=== PATIENT | male | born 1985 | race Caucasian/White ===

== ENCOUNTER 2016-12-06 00:36 | Emergency (ER) | payer BC ==
[~2016-12-06] VITALS: Ht 177.8 cm; Wt 81.6 kg
--- NOTE | 2016-12-06 00:55 | PHYS DOC ---
Adult General HPI HPI 31-year-old male who presented acutely altered by KEVIN after being taken out of his vehicle and not cooperating with police. Patient is nonverbal upon arrival. He responds to painful stimulus. No other history can be obtained at this time due to the patient's mental status. Review of Systems Review of Systems A 10 point review of systems is unable to be obtained secondary to the patients underlying mental status. Allergies Allergies Allergies Coded Allergies Type Severity Reaction Last Updated Verified Unable to Assess 12/06/16 No Physical Exam Physical Exam Constitutional: Well developed, well nourished, no acute distress, non-toxic appearance. [] HENT: Normocephalic, atraumatic, bilateral external ears normal, oropharynx moist, no oral exudates, nose normal. [] Eyes: PERRLA, EOMI, conjunctiva normal, no discharge. [] Neck: Normal range of motion, no tenderness, supple, no stridor. [] Cardiovascular:Heart rate regular rhythm, no murmur [] Lungs & Thorax: Bilateral breath sounds clear to auscultation [] Abdomen: Bowel sounds normal, soft, no tenderness, no masses, no pulsatile masses. [] Skin: Warm, dry, no erythema, no rash. [] Back: No tenderness, no CVA tenderness. [] Extremities: No tenderness, no cyanosis, no clubbing, ROM intact, no edema. [] Neurologic: No obvious focal deficits. Current Patient Data Vital Signs Vital Signs Date Time Temp Pulse Resp B/P (MAP) Pulse Ox O2 Delivery O2 Flow Rate FiO2 12/06/16 02:45 80 112/56 (74) 97 Room Air 12/06/16 00:57 98.1 18 98.1 Lab Values Laboratory Tests Test 12/06/16 00:42 White Blood Count 5.6 x10^3/uL (4.0-11.0) Red Blood Count 4.16 x10^6/uL (4.30-5.70) L Hemoglobin 13.3 g/dL (13.0-17.5) Hematocrit 39.3 % (39.0-53.0) Mean Corpuscular Volume 95 fL (79-100) Mean Corpuscular Hemoglobin 32 pg (25-35) Mean Corpuscular Hemoglobin Concent 34 g/dL (31-37) Red Cell Distribution Width 13.7 % (11.5-14.5) Platelet Count 146 x10^3/uL (140-400) Neutrophils (%) (Auto) 58 % (31-73) Lymphocytes (%) (Auto) 31 % (24-48) Monocytes (%) (Auto) 9 % (0-9) Eosinophils (%) (Auto) 3 % (0-3) Basophils (%) (Auto) 0 % (0-3) Neutrophils # (Auto) 3.2 x10^3uL (1.8-7.7) Lymphocytes # (Auto) 1.7 x10^3/uL (1.0-4.8) Monocytes # (Auto) 0.5 x10^3/uL (0.0-1.1) Eosinophils # (Auto) 0.1 x10^3/uL (0.0-0.7) Basophils # (Auto) 0.0 x10^3/uL (0.0-0.2) Sodium Level 142 mmol/L (136-145) Potassium Level 3.2 mmol/L (3.5-5.1) L Chloride Level 106 mmol/L (98-107) Carbon Dioxide Level 24 mmol/L (21-32) Anion Gap 12 (6-14) Blood Urea Nitrogen 14 mg/dL (8-26) Creatinine 1.2 mg/dL (0.7-1.3) Estimated GFR (Cockcroft-Gault) 71.1 Glucose Level 147 mg/dL (70-99) H Calcium Level 8.5 mg/dL (8.5-10.1) Troponin I Quantitative < 0.017 ng/mL (0.000-0.055) Salicylates Level 4.1 mg/dL (2.8-20.0) Salicylate Last Dose Date Unknown Salicylate Last Dose Time Unknown Urine Opiates Screen Neg (NEG) Urine Methadone Screen Neg (NEG) Acetaminophen Level < 2 mcg/ml (10-30) L Acetaminophen Last Dose Date Unknown Acetaminophen Last Dose Time Unknown Urine Barbiturates Neg (NEG) Urine Phencyclidine Screen Neg (NEG) Urine Amphetamine/Methamphetamine Neg (NEG) Urine Benzodiazepines Screen Neg (NEG) Urine Cocaine Screen Neg (NEG) Urine Cannabinoids Screen Neg (NEG) Ethyl Alcohol Level 123 mg/dL (0-10) H Urine Ethyl Alcohol Pos (NEG) Laboratory Tests 12/06/16 00:42 Laboratory Tests 12/06/16 00:42 EKG EKG EKG as interpreted by me shows a sinus tachycardia with rate of 103 bpm. There is a T-wave inversion noted to lead V2. There is no acute injury pattern seen. There is a leftward axis. There is an incomplete right bundle-branch block. Radiology/Procedures Radiology/Procedures CT head without contrast: Reason for examination: Altered mental status tonight. Patient opens eyes and follows some commands. Unresponsive to questions. Patient admits to more than 10 alcoholic drinks tonight. Axial images were obtained through the brain. No contrast was administered. Exposure: One or more of the following individualized dose reduction techniques were utilized for this examination: 1. Automated exposure control 2. Adjustment of the mA and/or kV according to patient size 3. Use of iterative reconstruction technique. Ventricular systems are symmetric and not abnormally dilated. No midline shift is seen. There is no evidence of intracranial hemorrhage, infarct, mass or contusion. No abnormalities are seen at the orbits. There is a small polypoid lesion in the left maxillary antrum and some mild mucosal thickening in the right maxillary antrum. Remaining paranasal sinuses are clear. Mastoid air cells are clear. No acute skull abnormality is evident. Note is made of a loculated cystic-appearing lesion in the left postauricular region measuring approximately 3 cm in AP dimension, 1 cm transaxially and extending approximately 5 cm craniocaudally. IMPRESSION: No acute intracranial abnormality evident. Loculated cystic lesions in the left posterior ventricular region measuring approximately 3 x 1 x 5 cm in AP, transaxial and craniocaudal dimensions respectively. Electronically signed by: Luna Mills MD (12/06/2016 1:38 AM) Portable one view chest as interpreted by me did not reveal an acute cardiopulmonary process. Course & Med Decision Making Course & Med Decision Making Pertinent Labs and Imaging studies reviewed. (See chart for details) This acutely altered 31-year-old male will have full of laboratory workup including a head CT to rule out an acute cause of his symptoms. Laboratory workup is pending at this time. Patient responds to painful stimulus and does not display any evidence of airway compromise and he is saturating near 100% on room air. Patient was reassessed multiple times while in the department with complete resolution of his altered mental status. Patient does state he has history of what sounds like non-epileptiform seizures. It is possible he had one of these prior to arrival. His laboratory workup was unremarkable including a CT of his head. Portable 1 view his chest was unremarkable. Urine toxicology screen was negative for any illicit substances. His serum ethanol level was 123. Dragon Disclaimer Dragon Disclaimer This electronic medical record was generated, in whole or in part, using a voice recognition dictation system. Departure Departure Impression: Primary Impression: Altered mental status Disposition: HOME, SELF-CARE Admitting Physician: Other Condition: STABLE Patient Instructions: Altered Mental Status Additional Instructions: Please follow up with your primary doctor in the next 2-3 for your possible seizure episode. Return to the ER if you develop any worsening of your symptoms. CARMEN SUAZO DO Dec 06, 2016 00:55
[2016-12-06 01:10] LABS: BASO % 0 % (0-3); EOS % 3 % (0-3); HEMATOCRIT 39.3 % (39.0-53.0); HEMOGLOBIN 13.3 g/dL (13.0-17.5); LYMPH # 1.7 x10^3/uL (1.0-4.8); LYMPH % 31 % (24-48); MEAN CORPUSCULAR HEMOGLOBIN 32 pg (25-35); MEAN CORPUSCULAR HGB CONC 34 g/dL (31-37); MEAN CORPUSCULAR VOLUME 95 fL (79-100); MONO % 9 % (0-9); NEUT % 58 % (31-73); PLATELET COUNT 146 x10^3/uL (140-400); RED BLOOD COUNT 4.16 x10^6/uL (4.30-5.70); RED CELL DISTRIBUTION WIDTH 13.7 % (11.5-14.5); WHITE BLOOD COUNT 5.6 x10^3/uL (4.0-11.0)
[2016-12-06 01:15] LABS: BARBITURATES NEG (NEG); BENZODIAZEPINES NEG (NEG); CANNABINOIDS NEG (NEG); COCAINE NEG (NEG); METHADONE NEG (NEG); OPIATES NEG (NEG); PHENCYCLIDINE NEG (NEG)
[2016-12-06 01:25] LABS: CALCIUM 8.5 mg/dL (8.5-10.1); CREATININE 1.2 mg/dL (0.7-1.3); GFR 71.1; POTASSIUM 3.2 mmol/L (3.5-5.1)
[2016-12-06 01:40] LABS: ETHANOL 123 mg/dL (0-10)
--- NOTE | 2016-12-06 01:41 | RAD ---
CT head without contrast: Reason for examination: Altered mental status tonight. Patient opens eyes and follows some commands. Unresponsive to questions. Patient admits to more than 10 alcoholic drinks tonight. Axial images were obtained through the brain. No contrast was administered. Exposure: One or more of the following individualized dose reduction techniques were utilized for this examination: 1. Automated exposure control 2. Adjustment of the mA and/or kV according to patient size 3. Use of iterative reconstruction technique. Ventricular systems are symmetric and not abnormally dilated. No midline shift is seen. There is no evidence of intracranial hemorrhage, infarct, mass or contusion. No abnormalities are seen at the orbits. There is a small polypoid lesion in the left maxillary antrum and some mild mucosal thickening in the right maxillary antrum. Remaining paranasal sinuses are clear. Mastoid air cells are clear. No acute skull abnormality is evident. Note is made of a loculated cystic-appearing lesion in the left postauricular region measuring approximately 3 cm in AP dimension, 1 cm transaxially and extending approximately 5 cm craniocaudally. IMPRESSION: No acute intracranial abnormality evident. Loculated cystic lesions in the left posterior ventricular region measuring approximately 3 x 1 x 5 cm in AP, transaxial and craniocaudal dimensions respectively. Electronically signed by: Luna Mills MD (12/06/2016 1:38 AM)
[2016-12-06 02:45] VITALS: BP 112/56
--- NOTE | 2016-12-06 07:36 | RAD ---
Indication: Altered mental status. Time of exam 0057 hours. FINDINGS: The heart size is normal. The lungs are clear. No pleural effusion or pneumothorax is identified. The pulmonary vascularity is normal. IMPRESSION: No acute abnormality detected.
--- NOTE | 2016-12-06 07:54 | EKG ---
[facility] [address] [place] [address] Test Date: 2016-12-06 Test Time: 01:04:46 Pat Name: LÓPEZ WHITE Department: Room: Gender: M [employer]uff [employer] Operator: : 1985 Requested By: CARMEN SUAZO Order Number: [id number] Reading MD: Isaac Cui Measurements Intervals [place] Rate: 103 P: 0 OH: 124 QRS: -26 QRSD: 112 T: 148 QT: 332 QTc: 437 Interpretive Statements SINUS TACHYCARDIA LEFTWARD AXIS INCOMPLETE RIGHT BUNDLE BRANCH BLOCK T ABNORMALITY IN HIGH LATERAL LEADS RI6.01 Unconfirmed report No previous ECG available for comparison Electronically Signed On 12-09-2016 9:50:20 CDT by Isaac Cui
== END 2016-12-06 03:20 | disposition home or self-care (01) ==
LOC: ER 00:36
DX: R41.82 Altered mental status, unspecified (principal)
CPT/HCPCS: 36415; 70450; 71010; 80048; 84484; 85027; 93005; 99285; G0480; 80320; 80329; G0481